=== PATIENT | female | born 1940 | race Caucasian/White ===

== ENCOUNTER 2016-04-29 18:37 | Inpatient (IN) | payer OTHER ==
[2016-04-29] MEDS ORDERED: ZOFRAN IV PRN (18:45)
[2016-04-29 18:58] LABS: MANUAL DIFF NEEDED? NO
[2016-04-29 19:04] LABS: BASO% 0.2 % (0.0-0.8); EOS# 0.16 X1000 (0.0-0.7); EOS% 1.4 % (0.0-10.0); HEMATOCRIT 44.5 % (37.0-47.0); HEMOGLOBIN 14.5 g/dL (12.0-16.0); IMM GRAN# 0.06 X1000 (0.0-0.04); IMM GRAN% 0.5 % (0.0-0.5); LYMPH# 1.65 X1000 (1.2-3.4); MCH 29.8 PG (27-31); MCHC 32.6 g/dL (33-37); MCV 91.4 FL (81-99); MONO# 0.73 X1000 (0.11-0.59); MONO% 6.2 % (1.7-9.3); MPV 11.3 FL (7.4-10.4); NEUT% 77.7 % (42.2-75.2); PLT 224 X1000 (130-400); RBC 4.87 XMIL (4.2-5.4)
[2016-04-29 19:20] LABS: AGAP 16; ALBUMIN 4.2 g/dL (3.5-5.0); ALKALINE PHOSPHATASE 117 U/L (32-104); AMYLASE 53 U/L (20-200); BUN 9 mg/dL (8-22); CHLORIDE 97 mmol/L (98-107); COSMO 277; GOT 18 U/L (10-30); GPT 20 U/L (10-36); LIPASE 16 U/L (13-60); POTASSIUM 3.7 mmol/L (3.5-5.1); SODIUM 138 mmol/L (136-145); TCO2 25 mmol/L (25-35); TOTAL BILIRUBIN 0.56 mg/dL (0.20-1.00); TOTAL PROTEIN 7.7 g/dL (6.3-8.3)
[2016-04-29 19:20] LABS: URINE MICRO REVIEW NEEDED? NO; URINE SOURCE CLEAN CATCH
[2016-04-29 19:32] LABS: BILIRUBIN URINE NEGATIVE (NEGATIVE); BLOOD URINE NEGATIVE (NEGATIVE); COLOR YELLOW; GLUCOSE URINE NEGATIVE (NEGATIVE); LEUKOCYTES URINE NEGATIVE (NEGATIVE); NITRITE URINE NEGATIVE (NEGATIVE); PH URINE 6.5; PROTEIN URINE NEGATIVE (NEGATIVE); TURBIDITY URINE CLEAR (CLEAR); UROBILINOGEN URINE NORMAL (NORMAL)
[2016-04-29 19:33] LABS: UR EPITHELIAL CELLS <10 /HPF (<10); URINE BACTERIA NEGATIVE /HPF; URINE RBC <10 /HPF (<10); URINE WBC <10 /HPF (<10)
[2016-04-29] MEDS ORDERED: NS 1,000 ML IV SCH ×3 (20:30→23:41)
[2016-04-29] MEDS ORDERED: ZOSYN 3.375 GM/NS 50 ML IV SCH (20:30)
[2016-04-29] MEDS: MORPHINE IV PRN (20:40)
[2016-04-29] MEDS ORDERED: MAXIPIME 2 GM/NS 100 ML IV SCH (21:00)
[2016-04-29] MEDS ORDERED: MORPHINE IV ONE (21:03)
[2016-04-29] MEDS ORDERED: LR 1,000 ML ONE (21:48)
[2016-04-29] MEDS ORDERED: MARCAINE 0.25% PF/EPI 1:200,000 ONE (21:48)
--- NOTE | 2016-04-29 21:49 | HISTORY AND PHYSICAL ---
PRIMARY CARE PHYSICIAN: James Parra MD CHIEF COMPLAINT: Abdominal discomfort, nausea. HISTORY OF PRESENT ILLNESS: This 76-year-old white female with past medical history significant for anxiety, hypertension, hyperlipidemia, impaired fasting glucose, obstructive sleep apnea, benign thyroid nodule, osteoarthritis, overweight, palpitations, and insomnia presents for evaluation of above-mentioned symptoms. Current history of present illness began yesterday evening. The patient states that she and her went out to eat. Within approximately 4 hours, she developed lower abdominal pain. She described this pain as being right lower suprapubic and left lower quadrant in location. She did note having some mild nausea. She denied any diarrhea. She denied any significant constipation or changes in her bowel movements. Over the course of the next 24 hours her condition has progressed. She continues to have persistent discomfort in her lower abdominal field. Over the course of the day, there has been some more localization to the right lower quadrant as well as some right flank pain. She denies any fevers or chills. She does have persistent nausea, but no vomiting. Because of patient's persistent condition, she contacted me and further evaluation was pursued. The white blood cell count was noted to be modestly elevated. CT scan suggested underlying appendicitis. Patient will be admitted to the hospital for full evaluation and management of this condition. PAST MEDICAL HISTORY: 1. Abnormal skin examination with multiple actinic keratoses. She is followed routinely by Dr. Orozco. 2. Anxiety/depression. 3. Fibrocystic breast disease followed with serial mammography and self-examinations. She is monitored by Dr. Clark. 4. Hypertension. 5. History of tobacco use. 6. History of colonic polyps. 7. History of diverticulosis. 8. Hyperlipidemia. 9. Impaired fasting glucose. 10. Mitral valve prolapse. 11. Obstructive sleep apnea. 12. Benign thyroid nodule. 13. Osteoarthritis. 14. Overweight. 15. Palpitations. 16. Status post CLAYTON/BSO in 1986 by . 17. Insomnia. CURRENT MEDICATIONS: 1. Ambien CR 12.5 mg nightly. 2. Atorvastatin 40 mg at bedtime. 3. Clonazepam 1 mg 1/2 to 1 tablet at bedtime as needed. 4. Cymbalta 60 mg daily. 5. Losartan 50 mg daily. ALLERGIES: Patient states she is allergic to Augmentin, codeine, CoQ10, meloxicam, and metformin therapy. SOCIAL HISTORY: Patient smoked 3/4 of a pack per day for 5 years. She stopped in 1979. She uses alcohol socially. She denies illicit drug use. 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 She enjoys reading. She exercises occasionally. FAMILY HISTORY: Patient's father passed at age 92 secondary to complications of an abdominal aortic aneurysm. He had a history of coronary artery disease. Patient's mother passed at age 92 secondary to complications of Alzheimer's dementia. REVIEW OF SYSTEMS: A 12 point review of systems was performed. Pertinent positives and negatives are noted in history present illness. PHYSICAL EXAMINATION: VITAL SIGNS: Temperature 97.9 degrees, heart rate 84, respirations 20, blood pressure is 175/71. GENERAL: Well nourished, well developed, in no acute distress. HEENT: Normocephalic, atraumatic. Pupils equal, round, reactive to light. Extraocular muscles intact. Sclerae anicteric. [place] conjunctivae. Oral and nasopharynx clear without exudate. NECK: Supple. No lymphadenopathy. No thyromegaly. No bruits auscultated. CARDIOVASCULAR: Regular rate and rhythm. No significant murmurs, rubs, or gallops. PULMONARY: Clear to auscultation bilaterally. ABDOMEN: Soft. Tenderness in the right lower quadrant and suprapubic region. No guarding or rebound. Positive bowel sounds. EXTREMITIES: Moves all extremities well. No significant clubbing, cyanosis, edema. NEUROLOGIC: Cranial nerves 2 through 12 grossly intact. Motor and sensory grossly intact. PSYCHOLOGIC: Examination is appropriate. LABORATORY DATA: White blood cell count 11.80, hemoglobin 14.5, hematocrit 44.5, platelet count is 224,000. Sodium 138, potassium 3.7, chloride 97, bicarb 25, BUN 9, creatinine 0.7, glucose 150, calcium 10.0, total bilirubin 0.56, total protein 7.7, albumin 4.2, alkaline phosphatase 117, AST 18, ALT 20. Urinalysis returned negative. CT scan suggested acute appendicitis. ASSESSMENT/PLAN: A 76-year-old white female with past medical history as noted who presents for evaluation of nondescript abdominal discomfort. Over the course of the last 24 hours, the patient's pain has been in the left lower quadrant, suprapubic, and right lower quadrants. Over the course of the last 24 hours the pain does appear to be localizing. CT scan confirms appendicitis. Patient will be admitted to the hospital for full evaluation and management of this condition. 1. Admit to [address] [place] [address]. 2. Acute appendicitis-we will start patient on cefepime in the emergency department. I have consulted Dr. Ricardo Roldan. We will place patient nothing per oral. We will provide Zofran and morphine for nausea and pain respectively. We will defer further postoperative management to Dr. Roldan. 3. Anxiety/depression-we will continue patient on clonazepam and Cymbalta as an inpatient. 4. Hypertension-patient's blood pressure is elevated today. I suspect this is secondary to her underlying pain. We will continue her home medications for now. 5. Hyperlipidemia-we will continue patient on atorvastatin therapy. 6. Impaired fasting glucose-patient's blood sugar is elevated this evening. We will follow blood sugars while hospitalized as well. 7. Fluid, electrolytes, nutrition. We will monitor electrolytes. Normal saline at 75 mL an hour. Nothing per oral. 8. Prophylaxis. Patient will be placed on SCDs.
--- NOTE | 2016-04-29 21:51 | Diag Imaging Result Document ---
PROCEDURE NAME: RENAL STONE SEARCH - 04/29/2016 CT ABDOMEN AND PELVIS WITHOUT ORAL OR INTRAVENOUS CONTRAST: FINDINGS: The upper abdomen is not included on this renal stone search. Normal spleen and adrenal glands. No inflammation about the pancreas or gallbladder. No focal hepatic abnormality identified on this noncontrasted study. There are several hypodense renal lesions which may simply be cysts. I believe there is a 1 mm right renal stone. No hydronephrosis. Normal aorta. The appendix is distended measuring 9 mm in thickness. There are mild adjacent inflammatory changes. No free air. No abscess. No bowel obstruction. There are scattered diverticula in the sigmoid colon. The urinary bladder is only mildly distended. The uterus has been removed. No pelvic mass. IMPRESSION: 1. Acute appendicitis. 2. Tiny nonobstructing right renal stone. No hydronephrosis. 3. Scattered hypodense renal lesions which may be cysts. 4. Diverticulosis. 5. Hysterectomy. A preliminary report was given at 7:21 p.m.
[2016-04-29] MEDS ORDERED: NS 1,000 ML ONE (23:02)
[2016-04-29] MEDS ORDERED: DIPRIVAN 1% ONE (23:34)
[2016-04-29] MEDS ORDERED: FENTANYL ONE (23:34)
[2016-04-29] MEDS ORDERED: KLONOPIN PO PRN (23:41)
[2016-04-29] MEDS ORDERED: AMBIEN CR PO PRN (23:41)
[2016-04-29] MEDS ORDERED: CYMBALTA PO SCH (23:41)
[2016-04-29] MEDS ORDERED: LIPITOR PO SCH (23:41)
[2016-04-29] MEDS: OFIRMEV 1000 MG/ISOTONIC SOLN 100 ML IV SCH (23:50)
[2016-04-30] MEDS: MORPHINE IV PRN (00:22)
--- NOTE | 2016-04-30 03:29 | CONSULTATION ---
DATE OF CONSULTATION: 04/29/2016 HISTORY OF PRESENT ILLNESS: This is a 76-year-old female who is in reasonably good health, who presents with approximately a 12 hour history of abdominal pain, now localizing to the right side of her abdomen. She is a patient of Dr. Parra. She contacted him at home. He arranged ER transfer. CT scan shows evidence of acute appendicitis. Has had some nausea. No changes in her bowel movements otherwise. Ate dinner tonight but has not had much of an appetite. PAST MEDICAL HISTORY: 1. History of actinic keratoses. 2. Fibrocystic breast disease. 3. Depression. 4. Hypertension. 5. Hyperlipidemia. 6. History of smoking. 7. History of colon polyps, colonoscopy [place] [address] Soria. 8. Impaired fasting glucose or early diabetes. 9. Mitral valve prolapse. 10. Sleep apnea. 11. History of thyroid nodules. 12. Arthritis. SURGICAL HISTORY: She has had a total abdominal hysterectomy with bilateral salpingo-oophorectomy in the last . SOCIAL HISTORY: History of smoking and occasional alcohol. She lives here in [place]. Her is here with her. FAMILY HISTORY: Parents lived into their 90s. History of aneurysms, Alzheimer's disease, and coronary disease. REVIEW OF SYSTEMS: Ten point negative other than what is mentioned in the HPI. PHYSICAL EXAMINATION: Vital Signs: Temperature is 97.9, pulse 84, blood pressure 175/71, oxygen saturation 100 percent. General: She is alert, in no acute distress. HEENT: There is no scleral icterus. Cardiovascular: Normal rate, regular rhythm. Pulmonary: No increased work of breathing. Abdomen: Soft. There is some mild tenderness in the right lower quadrant of her abdomen but no focal peritonitis. Integumentary: Warm and dry. Extremities: There is no lower extremity edema. LABS: White count is 11, hematocrit is 44, platelets 224,000. Creatinine 0.7, glucose is 150. Alkaline phosphatase mildly elevated at 117 but bilirubin was normal. Urinalysis is negative. CT scan shows a dilated fluid-filled appendix with stranding, consistent with acute appendicitis. On my read, I also noted a small exophytic right renal mass as well. With a noncontrast scan, it is difficult to fully ascertain the significance and there is a nonobstructing renal stone. ASSESSMENT/PLAN: A 76-year-old female with CT clinical evidence of acute appendicitis. We discussed risks, benefits, and alternatives. I have recommended a laparoscopic appendectomy. She consents for this. We will plan to go the operating room soon. She received antibiotics in the emergency department. She is nothing per oral. We will mobilize the operating room and proceed tonight. We did talk about the possibility of a postoperative abscess, especially in the setting of perforation. She understands that this is a risk. We will admit her following surgery. Advance her diet and plan for home soon, again all depending on the findings at the time of surgery.
--- NOTE | 2016-04-30 03:52 | OPERATIVE NOTE ---
PROCEDURE DATE: 04/29/2016 PREOPERATIVE DIAGNOSIS: Acute appendicitis. POSTOPERATIVE DIAGNOSIS: Acute appendicitis. PROCEDURE PERFORMED: Laparoscopic appendectomy. BALANCE BRIDGE ASSEMBLER: Sofia Clark MD. Dr. Clark was present to facilitate retraction, identification of abnormal anatomy due to the acute inflammatory process. ESTIMATED BLOOD LOSS: Less than 5 mL. SPECIMENS: Appendix. OPERATIVE INDICATION: A 76-year-old female with acute onset of abdominal pain earlier today. CT scan showed acute appendicitis. She had a mild leukocytosis. Appendectomy is indicated. OPERATIVE FINDINGS: There is an inflamed, distended, thickened appendix with no evidence of perforation. It was slightly laying in the retrocecal location. OPERATIVE NOTE: Risks, benefits, and alternatives were discussed with the patient. She consented to the procedure. She was seen in the preoperative area and surgery to be performed was confirmed. She was taken to the operating room and placed in a supine position. General anesthesia was induced without complication. All bony prominence were padded. A Nguyen catheter was placed. Preincisional antibiotics were confirmed. Her abdomen was prepped with chlorhexidine solution and draped in the usual fashion. A time-out performed between nursing, surgical, and anesthesia staff. All agreed on the procedure to be performed. After the time-out, a periumbilical block was made. Curvilinear infraumbilical incision was made and dissection carried down to the fascia. The fascia was elevated and a midline incision was made. The abdomen was entered in a controlled fashion. A Kevin trocar was placed with care to protect the underlying structures. The abdomen was insufflated to 15 mmHg. She tolerated this well. Abdomen was inspected. There was no evidence of injury or unexpected findings. She was placed in a Trendelenburg position, left side down. A 5 mm trocar was placed in the suprapubic location after infiltration of the peritoneum. Then a 12 mm trocar was placed in the left lower quadrant lateral to the epigastric vessels. Using blunt graspers, atraumatic, we identified the appendix, elevated it out of the retrocecal location. It was very inflamed but not perforated. We used the LigaSure device. We took the mesoappendix up to the base of the cecum using a gold load 30 mm stapler. We fired this across the base of the appendix, completely removing it. There was good closure of the appendiceal stump and no bleeding was noted. We placed the appendix in an EndoCatch bag. We irrigated the wound and suctioned this until clear. Again inspected the abdomen. The liver was normal. Pelvis, there is absent uterus and no ovaries identified but there was no other pathology noted here and the peritoneum seemed okay. Using a Berto-Paul device, we closed the left lower quadrant incision with 0 Vicryl sutures, desufflated the abdomen, removed the appendix out through the umbilicus, closed the umbilical fascia with 0 Vicryl suture in an interrupted fashion. Skin was closed with 4-0 Monocryl. Dermabond was applied. She tolerated the procedure well. Removed the Nguyen. Sponge, instrument, and needle counts were correct x2. I talked to the family.
[2016-04-30] MEDS: COZAAR PO SCH ×2 (05:33→09:34)
[2016-04-30] MEDS: OFIRMEV 1000 MG/ISOTONIC SOLN 100 ML IV SCH (06:12)
[2016-04-30 06:18] LABS: BASO% 0.1 % (0.0-0.8); EOS# 0.01 X1000 (0.0-0.7); EOS% 0.1 % (0.0-10.0); HEMATOCRIT 41.8 % (37.0-47.0); HEMOGLOBIN 13.5 g/dL (12.0-16.0); IMM GRAN# 0.04 X1000 (0.0-0.04); IMM GRAN% 0.3 % (0.0-0.5); LYMPH# 0.87 X1000 (1.2-3.4); LYMPH% 6.6 % (20.5-51.1); MANUAL DIFF NEEDED? YES; MCH 29.5 PG (27-31); MCHC 32.3 g/dL (33-37); MCV 91.3 FL (81-99); MONO# 0.12 X1000 (0.11-0.59); MONO% 0.9 % (1.7-9.3); MPV 11.3 FL (7.4-10.4); PLT 202 X1000 (130-400); RBC 4.58 XMIL (4.2-5.4)
[2016-04-30 06:42] LABS: AGAP 15; ALBUMIN 3.7 g/dL (3.5-5.0); ALKALINE PHOSPHATASE 110 U/L (32-104); BUN 7 mg/dL (8-22); CHLORIDE 99 mmol/L (98-107); COSMO 277; GOT 17 U/L (10-30); GPT 16 U/L (10-36); POTASSIUM 4.5 mmol/L (3.5-5.1); SODIUM 138 mmol/L (136-145); TCO2 24 mmol/L (25-35); TOTAL BILIRUBIN 0.44 mg/dL (0.20-1.00); TOTAL PROTEIN 6.4 g/dL (6.3-8.3)
[2016-04-30 07:30] LABS: LYMPHS 10 % (21-51); MONO 1 % (1-9)
[2016-04-30 08:12] VITALS: BP 142/69
[2016-04-30] MEDS ORDERED: PERIDEX MT SCH (09:00)
--- NOTE | 2016-04-30 11:38 | PROGRESS NOTE ---
DATE: 04/30/2016 SUBJECTIVE: She feels very well. No more pain. No real pain at her incisions even. No nausea. She is voiding. PHYSICAL EXAMINATION: Vital Signs: Afebrile. No tachycardia. Blood pressure normal. LABORATORY DATA: I have reviewed her labs. Hematocrit is stable. Creatinine is okay. White count is mildly elevated at 13. ASSESSMENT/PLAN: A 76-year-old female status post laparoscopic appendectomy. She is doing very well. We will advance her diet today. Her pain is controlled without any narcotics. Plan for her to go home. Her abdomen is soft and appropriately tender. Incisions are clean, dry, and intact with no cellulitis. She can return to my office in 1-2 weeks. I have given her my card with my cell phone and they will call if any issues arise. Otherwise, discussed her diet and postoperative activities, and what to look for as far as complication or development of an abscess. They will call if they notice any of these.
[2016-05-01] MEDS ORDERED: ZOFRAN ONE (07:22)
[2016-05-01] MEDS ORDERED: NEOSTIGMINE ONE (07:22)
[2016-05-01] MEDS ORDERED: NORCURON ONE (07:22)
[2016-05-01] MEDS ORDERED: XYLOCAINE-MPF 2% ONE (07:23)
[2016-05-01] MEDS ORDERED: LR 1,000 ML ONE (07:23)
[2016-05-01] MEDS ORDERED: CLAVE SECONDARY SET 11953 ONE (07:23)
[2016-05-01] MEDS ORDERED: DECADRON ONE (07:23)
[2016-05-01] MEDS ORDERED: OFIRMEV 1000 MG/ISOTONIC SOLN 100 ML ONE (07:23)
[2016-05-01] MEDS ORDERED: EXTENSION SET 32 IN 4522 ONE (07:23)
[2016-05-01] MEDS ORDERED: QUELICIN (DOSE) ONE (07:23)
[2016-05-01] MEDS ORDERED: ROBINUL ONE (07:23)
[2016-05-01] MEDS ORDERED: ANESTHESIA PB SET 88 IN 5742 ONE (07:23)
--- NOTE | 2016-05-01 18:47 | DISCHARGE SUMMARY ---
ADMISSION DATE: 04/29/2016 DISCHARGE DATE: 04/30/2016 ADMISSION DIAGNOSES: 1. Abdominal discomfort. 2. Nausea. DISCHARGE DIAGNOSES: 1. Acute appendicitis status post surgical intervention. 2. Anxiety/depression, present on arrival. 3. Hypertension, present on arrival. 4. Hyperlipidemia, present on arrival. 5. Impaired fasting glucose, present on arrival. CONSULTATIONS: Dr. Roldan with General Surgery was consulted for further evaluation and management of acute appendicitis. PROCEDURES: 1. CT scan of the abdomen pelvis was performed on 04/29/2016 which revealed acute appendicitis, tiny nonobstructing right renal stone. No hydronephrosis. Scattered hypodense renal lesions which may be cysts, diverticulosis. Hysterectomy. 2. A laparoscopic appendectomy was performed on 04/29/[address] Roldan. HISTORY AND PHYSICAL EXAMINATION: See admit note. PHYSICAL EXAMINATION PRIOR TO DISCHARGE: Vital Signs: Temperature 98.1 degrees, heart rate 78, respirations 16, blood pressure is 142/69. General: Well nourished, well developed, no acute distress. Cardiovascular: Regular rate and rhythm. No significant murmurs, rubs, or gallops. Pulmonary: Clear to auscultation bilaterally. Abdomen: Soft. Postoperative tenderness without guarding or rebound. Positive bowel sounds. Extremities: Moves all extremities well. No significant clubbing, cyanosis, or edema. Dermatologic: Evaluation reveals no evidence of rash. LABORATORY DATA: Prior to discharge. White blood cell count 13.18, hemoglobin 13.5, hematocrit 41.8, platelet count 202,000. Sodium 138, potassium 4.5, chloride 99, bicarb 24, BUN 7, creatinine 0.6, glucose 152, calcium 9.0, total bilirubin 0.44, total protein 6.4, albumin 3.7, alkaline phosphatase 110, AST 17, ALT 16. HOSPITAL COURSE: Patient was admitted as per history and physical examination. Hospital course per condition is as follows. 1. Acute appendicitis-the patient was evaluated in the emergency department and full evaluation revealed acute appendicitis. I contacted Dr. Roldan and he immediately evaluated patient and she was taken for surgical intervention. Patient tolerated this quite well. The patient received a preoperative dose of cefepime. Postoperatively, the patient did quite well. She had moderate abdominal discomfort. There is no evidence of fevers or chills. With improvement in her overall condition, patient was discharged home with Kylah and José Miguel. She will be followed closely as an outpatient by Dr. Roldan. 2. Nonspecific renal lesions-I discussed this with the radiologist hot pond operator. These likely represent cystic lesions. We will plan to refer patient for ultrasound as an outpatient. Further evaluation is warranted. 3. Anxiety/depression-patient was continued on clonazepam and Cymbalta therapy as an inpatient. 4. Hypertension-patient's blood pressure was elevated while hospitalized, likely secondary to pain. We will continue her current regimen and follow this as an outpatient as well. 5. Impaired fasting glucose-patient's glucose remained in the 150 range while hospitalized. This certainly could be reactive from her acute illness. We will plan to follow this closely as an outpatient as well. DISCHARGE CONDITION: Good. DISPOSITION: Discharge to home. MEDICATIONS: 1. Colace 100 mg twice daily. 2. Hydrocodone 5/325 one tablet every 6 hours as needed. 3. Zofran 4 mg every 4 hours as needed. 4. Atorvastatin 40 mg at bedtime. 5. Clonazepam 1 mg at bedtime. 6. Duloxetine 60 mg at bedtime. 7. Losartan 50 mg twice daily. 8. Ambien CR 12.5 mg at bedtime. FOLLOWUP: The patient to follow with me in approximately a week.
== END 2016-04-30 10:16 | disposition home or self-care (01) | DRG 343 ==
LOC: ED 18:37 → OPS 21:32 → 4N 23:39 → OBSVTOIN 23:39
PROVIDERS: ADMIT Surgery; ATTEND Internal Medicine
PROC: 0DTJ4ZZ Resection of Appendix, Percutaneous Endoscopic Approach (ICD-10-PCS; principal; 2016-04-29 21:49)
DX: K35.80 Unspecified acute appendicitis (principal); I34.1 Nonrheumatic mitral (valve) prolapse; I10 Essential (primary) hypertension; E78.5 Hyperlipidemia, unspecified; R73.02 Impaired glucose tolerance (oral); N28.9 Disorder of kidney and ureter, unspecified; K57.90 Diverticulosis of intestine, part unspecified, without perforation or abscess without bleeding; G47.33 Obstructive sleep apnea (adult) (pediatric); M16.10 Unilateral primary osteoarthritis, unspecified hip; F41.8 Other specified anxiety disorders; E66.3 Overweight; Z79.899 Other long term (current) drug therapy; Z87.891 Personal history of nicotine dependence; Z68.37 Body mass index [BMI] 37.0-37.9, adult; Z82.49 Family history of ischemic heart disease and other diseases of the circulatory system
CPT/HCPCS: 74176; 80053; 81001; 82150; 83690; 85025; 88304; 88313; 94799; J0131; J0330; J0692; J1100; J2270; J2405; J3010; J7030; J7120; J2710